=== PATIENT | female | born 1965 | race Caucasian/White ===

== ENCOUNTER 2019-06-16 22:59 | Observation (INO) ==
--- OUTSIDE RECORDS SUMMARY | 2019-06-16 23:03 | External Medical Summary | Continuity of Care Document ---
:1965 Demographics Address [address] [place] [address] Phone Unavailable Preferred Language en Marital Status Unknown Roman Catholic Affiliation Unknown Race White Ethnic Group Unknown Author Name Cally Richards Address Unavailable Unavailable , Care Team Providers Name Role Phone Non[facility] M.Romana Unavailable [email or web address] ERLINDA Richards, A Unavailable Unavailable Problems Active medical history not documented Allergies and Adverse Reactions Allergy history not documented Medications Medications not documented Procedures Procedures not documented Immunizations Immunizations not documented Plan of Treatment Planned Observations Planned Goals not documented Results No Known Results Results not documented
[2019-06-16] MEDS ORDERED: DIAZEPAM 5 MG/ML INJ 10ML VIAL IV STA (23:25)
[2019-06-16] MEDS ORDERED: fentaNYL citrate 100 MCG/2 ML VIAL IV STA (23:25)
[2019-06-16 23:54] LABS: Basophils # (auto) 0.05 K/uL (0-0.2); Basophils % (auto) 0.8 %; Eosinophils # (auto) 0.11 K/uL (0-0.5); Eosinophils % (auto) 1.7 %; Hematocrit (blood only) 43.1 % (37-47); Hemoglobin 14.3 g/dL (12.0-16.0); Immature Granulocytes # (auto) 0.01 K/uL (0.00-0.02); Immature Granulocytes % (auto) 0.2 %; Lymphocytes # (auto) 1.79 K/uL (1.2-3.4); Lymphocytes % (auto) 27.3 %; Mean Corpuscular Hemoglobin 35.1 pg (25-34); Mean Corpuscular Hgb Conc 33.2 g/dL (32-36); Mean Corpuscular Volume 105.9 fL (80-100); Mean Platelet Volume 10.6 fL (7.4-10.4); Monocytes # (auto) 0.78 K/uL (0.11-0.59); Monocytes % (auto) 11.9 %; Neutrophils # (auto) 3.81 K/uL (1.4-6.5); Neutrophils % (auto) 58.1 %; Platelet Count 310 K/uL (130-400); RDW Coefficient of Variation 14.8 % (11.5-14.5); RDW Standard Deviation 57.7 fL (36.4-46.3); Red Blood Count 4.07 M/uL (4.2-5.4); White Blood Count 6.55 K/uL (4.8-10.8)
[2019-06-17 00:10] LABS: Calcium 9.7 mg/dl (8.5-10.1); Est GFR (African American) 112.8; Est GFR (Non-African American) 97.3
[2019-06-17] MEDS ORDERED: KETOROLAC 30 MG/ML VIAL IV STA (00:25)
[2019-06-17] MEDS ORDERED: LORazepam 1 MG/2 ML VIAL IV STA (00:25)
[2019-06-17] MEDS ORDERED: DEXAMETHASONE **PF** INJ 10 MG/ML VIAL IV ONE (00:25)
[2019-06-17] MEDS ORDERED: HYDROmorphone INJ 1 MG/ML SYRINGE IV STA (01:05)
[2019-06-17] MEDS ORDERED: HYDROmorphone INJ 0.5 MG/0.5 ML SYR IV STA (02:29)
--- NOTE | 2019-06-17 04:56 | Emergency Department Note ---
Entered by Michael Stevens acting as a scribe for ED Provider Note Name: Lety Hernandez Age: 54 Arrives Via: EMS Informant: Patient CC: Back pain HPI: The patient is a 54 year old female who presents to the emergency department with complaints of constant lower back pain beginning today. The patient states that she developed lower back pain today when she stood up. She notes that she did not do any heavy lifting or twisting. She reports that her p ain worsens with movement. She denies any leg pain, urinary/bowel incontinence, urinary burning, fever, and SOB. The patient states that she has not had any prior back problems. She notes that she has a history of asthma, anxiety, depression, borderline diabetes, and she reports that she has an artificial hip. She reports that she smokes cigarettes. The patient states that her parents have both had back surgery. ROS: See above HPI for pertinent positives & negatives. A total of 8 systems reviewed and were otherwise negative. Past Medical History: Anxiety, depression, asthma, borderline diabetes Past Surgical History: History of hip replacement Family History: Family history of back problems Social History: Smokes cigarettes Home Medications: None Allergies: Sulfa Physical: Vitals: BP 178/94, Pulse 72, Resp 18, Temp 98.8 F, O2 Sat 94 Exam: GENERAL: Patient is uncomfortable appearing and in moderate distress. EYES: No scleral icterus, unremarkable pupils. RESPIRATORY: No dyspnea. Clear to auscultation and equal bilaterally. No wheeze, no rhonchi. CARDIOVASCULAR: Regular rate and rhythm. No murmurs, rubs, gallops appreciated. GASTROINTESTINAL: Abdomen soft, non-tender, no peritonitis. Bowel sounds positive. No masses appreciated. BACK: No midline tenderness, no CVA tenderness. Vague tenderness to the bilateral lumbar paraspinal muscles. EXTREMITIES: Normal motion all extremities, no cyanosis, no edema. NEUROLOGIC: Alert and oriented, no acute motor or sensory deficits, no focal weakness, cranial nerves grossly intact. SKIN: No rash, no jaundice, no diaphoresis. ED Course: Prior Medical Record, Triage/Nursing Notes, Medications, Allergies reviewed by Me 2319: The patient was evaluated in room B6. A complete history and physical exam was performed. 2350: I rechecked the patient. She is much more comfortable. Her back is still spasming some but she is much improved. 0025: I reevaluated and updated the patient. Her pain is starting to return. I discussed her X-ray with her. Further medication was ordered. 0105: I rechecked the patient. Her pain is better, but she is unable to move due to severe pain with any movement. Her pain is also worse when she lifts her legs. She continues to deny any abdominal pain or radiation of pain. 0335: I reevaluated and updated the patient. She is still not able to sit up without pain despite being somnolent enough to require nasal cannula oxygen[facility]. 0338: Upon reevaluation, the patient is stable. I discussed the findings and the treatment plan with the patient. She expresses agreement and understanding. I spoke with Dr. Hobson of the [facility] Hospitalist Service. The patient will be evaluated for further management. Vital Signs: reviewed and remarkable for HTN Labs: Reviewed and remarkable for wnl Interventions: saline lock, fentanyl 50mcg IV, Valium 5mg IV, toradol 30mg IV, decadron 10mg IV, ativan 1mg IV, dilaudid 1mg IV & 0.5mg IV Imaging: LUMBAR SPINE X-RAY: Xray Results per my interpretation: 3 view: posteriorlisthesis L3/L4 with mild scoliosis and arthritic findings. No fracture nor dislocation. Consults: 0338: I reviewed the patient's case [facility] He will evaluate the patient for further management. Blood pressure: Elevated - Further management by hospitalist. Disposition: Hospitalization Prescriptions: None. Differential: Musculoskeletal, Disc Herniation, Fracture, Cord Compression, Discitis, Infectious, Aortic Pathology, Renal Colic, UTI/Pyelonephritis, Acute Exacerbation of Chronic Pain, Sciatica, Cauda Equina, amongst other pathologies entertained. Medical Decision Makin yr old female with history of asthma, gerd, depression and allergies arrives with acute low back pain. Clearly worse with movement and palpation. No abdominal nor other symptoms. She has good distal pulses and normal neuro exam without loss bowel/bladder control. No indication for emergent MRI nor CT at this time. Findings and symptoms not consistent with renal colic, aaa/dissection/rupture, neuro compromise, infection, hemorrhage amongst others. After extended time in ED and despite given her enough meds that she became mildly hypoxic, patient continues to be quite uncomfortable and even with both me and nurse at bedside is unable to sit up without severe pain. At this time hospitalist consulted for further management do to intractable pain and unable to be discharged. Impression: Intractable back pain Matt Finch MD The scribe's documentation has been prepared under my direction and personally reviewed by me in its entirety. I confirm that the note above accurately reflects all work, treatment, procedures, and medical decision making performed by me. Impression & Plan Intractable back pain Past Med/Surg History Medical History (Updated 06/17/19 @ 04:02 by Michael Stevens) Anxiety Asthma Borderline diabetes Depression Surgical History (Updated 06/16/19 @ 23:23 by Michael Stevens) History of hip replacement Family History (Updated 06/16/19 @ 23:24 by Michael Stevens) Other No significant family history Social History (Updated 06/16/19 @ 23:24 by Michael Stevens) current occupational status: unemployed Feels Safe at Home: Yes Smoking Status: Current every day smoker Results & Data Vital Signs Vital Signs - 24 hr 06/16/19 22:54 06/16/19 23:08 06/16/19 23:10 Temperature 37.1 C Temperature Source Oral Pulse Rate 72 70 69 Pulse Rate from SpO2 Sensor 71 69 Respiratory Rate 18 19 14 Respiratory Effort / Characteristics Non-Labored Spontaneous Respiratory Depth Normal Blood Pressure 178/94 H 178/94 H Blood Pressure Mean 122 119 Blood Pressure Position Sitting Pulse Oximetry 94 97 95 Oxygen Delivery Method Room Air Oxygen Flow Rate Sepsis Recent Fever Within 48 Hours No Sepsis New/Unexplained Change in Mental Status No Sepsis Action Taken by Nursing No Action Required 06/16/19 23:30 06/17/19 00:06 06/17/19 00:30 Temperature Temperature Source Pulse Rate 70 63 68 Pulse Rate from SpO2 Sensor 71 Respiratory Rate 19 15 19 Respiratory Effort / Characteristics Respiratory Depth Blood Pressure Blood Pressure Mean Blood Pressure Position Pulse Oximetry 96 Oxygen Delivery Method Oxygen Flow Rate Sepsis Recent Fever Within 48 Hours Sepsis New/Unexplained Change in Mental Status Sepsis Action Taken by Nursing 06/17/19 01:00 06/17/19 01:14 06/17/19 01:30 Temperature Temperature Source Pulse Rate 67 69 64 Pulse Rate from SpO2 Sensor 68 66 64 Respiratory Rate 20 16 16 Respiratory Effort / Characteristics Respiratory Depth Blood Pressure 147/84 H 120/76 Blood Pressure Mean 91 87 Blood Pressure Position Pulse Oximetry 94 97 92 Oxygen Delivery Method Oxygen Flow Rate Sepsis Recent Fever Within 48 Hours Sepsis New/Unexplained Change in Mental Status Sepsis Action Taken by Nursing 06/17/19 01:31 06/17/19 02:00 06/17/19 02:01 Temperature Temperature Source Pulse Rate 67 63 60 Pulse Rate from SpO2 Sensor 67 61 60 Respiratory Rate 19 18 17 Respiratory Effort / Characteristics Respiratory Depth Blood Pressure 125/86 Blood Pressure Mean 107 Blood Pressure Position Pulse Oximetry 92 93 90 Oxygen Delivery Method Oxygen Flow Rate Sepsis Recent Fever Within 48 Hours Sepsis New/Unexplained Change in Mental Status Sepsis Action Taken by Nursing 06/17/19 02:30 06/17/19 02:31 06/17/19 02:51 Temperature Temperature Source Pulse Rate 60 62 54 L Pulse Rate from SpO2 Sensor 60 61 55 L Respiratory Rate 15 17 13 Respiratory Effort / Characteristics Respiratory Depth Blood Pressure 159/88 H 152/85 H Blood Pressure Mean 111 94 Blood Pressure Position Pulse Oximetry 92 90 95 Oxygen Delivery Method Oxygen Flow Rate Sepsis Recent Fever Within 48 Hours Sepsis New/Unexplained Change in Mental Status Sepsis Action Taken by Nursing 06/17/19 02:54 06/17/19 03:00 06/17/19 03:01 Temperature Temperature Source Pulse Rate 60 58 L 55 L Pulse Rate from SpO2 Sensor 56 L 56 L Respiratory Rate 16 15 14 Respiratory Effort / Characteristics Respiratory Depth Blood Pressure 152/85 H 123/83 Blood Pressure Mean 107 96 Blood Pressure Position Pulse Oximetry 96 96 94 Oxygen Delivery Method Nasal Cannula Oxygen Flow Rate 2 Sepsis Recent Fever Within 48 Hours Sepsis New/Unexplained Change in Mental Status Sepsis Action Taken by Nursing 06/17/19 03:30 06/17/19 04:00 Temperature Temperature Source Pulse Rate 73 56 L Pulse Rate from SpO2 Sensor Respiratory Rate 15 14 Respiratory Effort / Characteristics Respiratory Depth Blood Pressure 177/87 H Blood Pressure Mean 118 Blood Pressure Position Pulse Oximetry Oxygen Delivery Method Oxygen Flow Rate Sepsis Recent Fever Within 48 Hours Sepsis New/Unexplained Change in Mental Status Sepsis Action Taken by Detention Medications Current Medication List: was personally reviewed by me Laboratory Data Attestation: I reviewed the patient's lab results. Result diagrams: 06/16/19 23:35 06/16/19 23:35 Lab Results 06/16/19 06/16/19 Range/Units 23:35 23:35 WBC 6.55 (4.8-10.8) K/uL RBC 4.07 L (4.2-5.4) M/uL Hgb 14.3 (12.0-16.0) g/dL Hct 43.1 (37-47) % MCV 105.9 H (80-100) fL MCH 35.1 H (25-34) pg MCHC 33.2 (32-36) g/dL RDW Std Deviation 57.7 H (36.4-46.3) fL RDW Coeff of Yadira 14.8 H (11.5-14.5) % Plt Count 310 (130-400) K/uL MPV 10.6 H (7.4-10.4) fL Immature Gran % (Auto) 0.2 % Neut % (Auto) 58.1 % Lymph % (Auto) 27.3 % [place] % (Auto) 11.9 % Eos % (Auto) 1.7 % Baso % (Auto) 0.8 % Immature Gran # (Auto) 0.01 (0.00-0.02) K/uL Neut # (Auto) 3.81 (1.4-6.5) K/uL Lymph # (Auto) 1.79 (1.2-3.4) K/uL [place] # (Auto) 0.78 H (0.11-0.59) K/uL Eos # (Auto) 0.11 (0-0.5) K/uL Baso # (Auto) 0.05 (0-0.2) K/uL Sodium 141 (136-145) mmol/L Potassium 4.0 (3.5-5.1) mmol/L Chloride 110 H (98-107) mmol/L Carbon Dioxide 23 (21-32) mmol/L Anion Gap 8.0 (3-11) BUN 5 L (7-18) mg/dl Creatinine 0.69 (0.6-1.2) mg/dl Est Cr Clr Drug Dosing 94.0 ml/min Est GFR ( Amer) 112.8 Est GFR (Non-Af Amer) 97.3 BUN/Creatinine Ratio 7.0 L (10-20) Glucose 118 H (70-99) mg/dl Calcium 9.7 (8.5-10.1) mg/dl Administered Medications Discontinued Medications Dexamethasone Sodium Phosphate (Decadron Pf) 10 mg IV NOW ONE Stop: 06/17/19 00:26 Last Admin: 06/17/19 00:35 Dose: 10 mg Documented by: [id number] Diazepam (Valium) 5 mg IV NOW STA Stop: 06/16/19 23:26 Last Admin: 06/16/19 23:37 Dose: 5 mg Documented by: [id number] Fentanyl Citrate (Fentanyl Citrate) 50 mcg IV NOW STA Stop: 06/16/19 23:26 Last Admin: 06/16/19 23:38 Dose: 50 mcg Documented by: [id number] Hydromorphone HCl (Dilaudid) 1 mg IV NOW STA Stop: 06/17/19 01:06 Last Admin: 06/17/19 01:13 Dose: 1 mg Documented by: [id number] Hydromorphone HCl (Dilaudid) 0.5 mg IV NOW STA Stop: 06/17/19 02:30 Last Admin: 06/17/19 02:38 Dose: 0.5 mg Documented by: [id number] Lorazepam (Ativan) 1 mg in 2 mls @ 2 mls/min IV NOW STA Stop: 06/17/19 00:26 Last Admin: 06/17/19 00:35 Dose: 1 mls/min Documented by: [id number] Ketorolac Tromethamine (Toradol) 30 mg IV NOW STA Stop: 06/17/19 00:26 Last Admin: 06/17/19 00:35 Dose: 30 mg Documented by: [id number] Discharge Plan Visit Data Chief Complaint: Back Injury/Pain Stated Complaint: BACK PAIN ED Provider: Matt Finch Discharge Problem: Intractable back pain Patient Disposition: Admitted As Inpatient The bartolome's documentation has been prepared under my direction and personally reviewed by me in its entirety. I confirm that the note above accurately reflects all work, treatment, procedures, and medical decision making performed by me.
[2019-06-17] MEDS ORDERED: HYDROmorphone INJ 0.5 MG/0.5 ML SYR IV PRN ×2 (04:57→11:30)
[2019-06-17] MEDS ORDERED: ONDANSETRON INJ 2 MG/ML 2 ML VIAL IV PRN (04:57)
[2019-06-17] MEDS ORDERED: SODIUM CHLORIDE 0.9% 1000ML 1,000 ML IV SCH (04:57)
[2019-06-17] MEDS ORDERED: POLYETHYLENE (MIRALAX) 17 GM PACK PO PRN (04:57)
[2019-06-17] MEDS ORDERED: ALPRAZolam 0.25 MG TABLET PO PRN (04:57)
[2019-06-17] MEDS ORDERED: ALBUTEROL HFA 8 GM INHALER INH PRN (04:57)
[2019-06-17] MEDS ORDERED: ACETAMINOPHEN 325 MG TAB PO PRN (04:57)
--- NOTE | 2019-06-17 05:53 | History and Physical Report ---
DATE OF ADMISSION: 06/17/2019 CHIEF COMPLAINT: Severe intractable back pain. HISTORY OF PRESENT ILLNESS: This is a 54-year-old female with past medical history significant for hyperlipidemia, prediabetes, allergic rhinitis, mild persistent asthma, COPD, hypertension, depression with anxiety, panic disorder, history of tobacco abuse, presents with severe back pain. She lives alone because her roommate is in the hospital. She was cooking soup in the afternoon when suddenly had severe back pain, intractable. She never had this kind of pain. She came to the ER and she was in the ER several hours. She was given Toradol, couple doses of Dilaudid, fentanyl, Valium, Decadron and Ativan. Still she has significant pain, any movement is causing severe pain, but denies any weakness in the extremities. Straight leg raise test negative, but she could not turn around because of pain.. Her vitals are stable, afebrile. Labs are okay. The patient denies any other problems. No incontinence of urine or stools. Normal bowel and bladder movements. No blood in stools or black stools. No hematuria or burning micturition. Otherwise, appetite is okay. No abdominal pain, no nausea, no vomiting. No chest pain, no shortness of breath, no cough. No fever, no chills, no headache. No dizziness, no blurred vision. No earache. She always has some runny nose, no sore throat. ALLERGIES: SULFA ANTIBIOTICS. PAST MEDICAL HISTORY: As mentioned above. PAST SURGICAL HISTORY: Ligation of the oviducts, right total hip replacement. MEDICATIONS: The patient is on albuterol 2 puffs inhalation q.i.d. p.r.n., alprazolam 0.25 mg p.o. daily p.r.n., atorvastatin 20 mg p.o. q.p.m., Symbicort 2 puffs inhalation b.i.d., cetirizine 10 mg p.o. daily, Cymbalta 90 mg p.o. daily, lisinopril 10 mg p.o. daily, montelukast 10 mg p.o. daily, omeprazole 20 mg p.o. daily. FAMILY HISTORY: Significant for father has allergies, diabetes, hypertension, hemochromatosis, hypercholesterolemia. Mother has hypercholesterolemia, hypertension, asthma, allergies. SOCIAL HISTORY: , lives with a roommate. Smoked half pack a day for 37 years. Alcohol, 1 drink 2-3 times a week. No drug use. REVIEW OF SYMPTOMS: As per HPI. Rest of review of symptoms negative. PHYSICAL EXAMINATION: GENERAL: The patient is obese, not in acute distress. VITAL SIGNS: Temperature 37.1, pulse 60, respiratory rate 16, blood pressure 152/85, oxygen 96% on 2 liters. HEENT: No pallor, no icterus. Pupils equal, round, reactive to light. NECK: No JVD, no neck masses, no carotid bruit. CARDIOVASCULAR: S1, S2 heard. Regular rate and rhythm. No murmur, no gallop. RESPIRATORY SYSTEM: Normal AP diameter. No accessory muscle use. No wheezing, no crackles. ABDOMEN: Soft, bowel sounds present, nontender. No distention. CENTRAL NERVOUS SYSTEM: Cranial nerves II-XII grossly intact, nonfocal. EXTREMITIES: No edema, no erythema. MUSCULOSKELETAL: Bilateral straight leg raise test is negative. LABORATORY DATA: WBC 6.5, hemoglobin 14.3, hematocrit 43.1, platelets 310. Sodium 141, potassium 4, chloride 110, bicarb 23, BUN 5, creatinine 0.6, serum glucose 118, calcium 9.7. Lumbar spine x-ray, no acute fracture seen. ASSESSMENT AND PLAN: This is a 54-year-old female who presents with severe intractable back pain, received several medications in the ER, still has significant pain, any movement is causing pain, with ambulatory dysfunction because of pain. We will observe in medical floor. Pain control with IV Dilaudid p.r.n., IV fluids and will consult pain management for further recommendations. PT and OT when stable. 1. History of mild persistent asthma, COPD, tobacco abuse. Continue home inhalers, currently stable. 2. Hyperlipidemia. Continue statin. 3. Depression and anxiety. Continue Cymbalta and alprazolam p.r.n. 4. Hypertension. Continue lisinopril. 5. GERD. Omeprazole. 6. Prediabetes. We will follow HbA1c levels. 7. Deep venous thrombosis prophylaxis. SCDs for now. DISPOSITION: Monitor in the medical floor. PT and OT prior to discharge. Expect to discharge home and follow with family doctor. Level 1 full code. MTDD
--- NOTE | 2019-06-17 06:44 | XRay Report ---
XR lumbar spine 2-3V CLINICAL HISTORY: sudden low back pain, worse with movement COMPARISON STUDY: No previous studies for comparison. FINDINGS: Minimal leftward curvature of the lumbar spine is noted. There is no fracture or suspicious lesion by radiography. Disc spaces are preserved. There is mild multilevel endplate osteophytosis. T here is mild multilevel facet arthrosis. The bowel gas pattern is normal. IMPRESSION: 1. No acute lumbar spine fracture or subluxation. 2. Mild multilevel degenerative disc disease and facet arthrosis within the lumbar spine. ACT 112: Negative or not required by law. Electronically signed by: Marv Pulido M.D. 06/17/2019 6:42 AM
[2019-06-17] MEDS: PANTOprazole 40 MG TAB PO SCH (08:27)
[2019-06-17] MEDS: lisinopriL 10 MG TAB PO SCH (08:28)
[2019-06-17] MEDS: MONTELUKAST SODIUM 10 MG TABLET PO SCH (08:28)
[2019-06-17] MEDS: DULOXETINE HCL 30 MG CAP PO SCH (08:28)
[2019-06-17] MEDS: DULOXETINE HCL 60 MG CAP PO SCH (08:29)
[2019-06-17] MEDS ORDERED: methylPREDNISolone 4 MG TAB, 6 DAY TAPER PO SCH (08:30)
[2019-06-17] MEDS: FLUTICASONE/VILANTEROL 100/25MCG 14 PUFFS/INHALER INH SCH (08:31)
[2019-06-17 08:53] LABS: Appearance Urine Turbid (Clear); Blood Urine Negative (Negative); Color Urine Orange; Epithelial Cell Urine Auto >30 /lpf (0-5); Glucose Urine UA Negative (Negative); Ketones Urine Negative (Negative); Leukocyte Esterase Urine Trace (Negative); Nitrite Urine Positive (Negative); Protein Urine Negative (Negative); Specific Gravity Urine 1.026 (1.000-1.030); Urobilinogen Urine Negative (Negative)
[2019-06-17] MEDS ORDERED: CETIRIZINE HCL 10 MG TABLET PO SCH (09:00)
[2019-06-17] MEDS: GABAPENTIN 100 MG CAP PO SCH ×2 (09:10→20:03)
[2019-06-17] MEDS: DICLOFENAC SODIUM 75 MG TABCR PO SCH ×2 (09:10→20:03)
[2019-06-17] MEDS: methylPREDNISolone 4 MG TAB PO SCH ×4 (09:14→20:04)
[2019-06-17 09:20] LABS: Bilirubin Urine Negative (Negative); Ictotest Urine Negative (Negative)
[2019-06-17 09:29] LABS: Amorphous Sediment Urine Present (None Prsent); Bacteria Urine Automated 1+ (Negative); RBC Urine Automated 0-4 /hpf (0-4)
--- NOTE | 2019-06-17 10:06 | Pain Management Consultation ---
Date of Consultation June 17, 2019 Assessment & Plan (1) Intractable back pain: 1. Recommend MRI of the lumbar spine without contrast to further delineate etiology of low back pain. Orders are written 2. Recommend utilization of diclofenac 75 mg p.o. twice daily, gabapentin 100 mg p.o. twice daily, Medrol Dosepak to minimize pain. Orders are written 3. Recommend decreasing hydromorphone to 0.5 mg IV every 6 hours. 4. Continue duloxetine at 90 mg p.o. daily as previous. 5. We will follow-up back with the patient once MRIs been complete to discuss results and delineate treatment plan. 6. Thank you for this consult. (2) Panic disorder: (3) Depression with anxiety: (4) Borderline diabetes: History of Present Illness Attending Physician: Babak Franks MD History of Present Illness 54-year-old female with 100% axial low back pain with acute onset while making a bowl of tomato soup for herself yesterday. She denies lifting a heavy pot or other trauma as to the etiology the pain. She states that pain is over her lower lumbar region and a " bandlike fashion" over left equal to right. She denies any distal radiation of pain or pain over SI joints or greater trochanters. She denies any motor weakness but admits that movement is difficult secondary to pain. She denies any back pain prior to making a bowl of tomato soup. She did not try any interventions other than nonsteroidal anti- inflammatories at home prior to presentation to the emergency room. Pain is characterized as sharp and stabbing between 2-10 out of 10 currently 5 out of 10. She is not had any previous interventional pain management. She denies any bowel or bladder incontinence, motor weakness, footdrop, fever, chills, and or night sweats. Pain Assessment Full Body Front + Back: 1. Allergies Allergy/AdvReac Type Severity Reaction Status Date / Time Sulfa (Sulfonamide Allergy Unknown Unknown Unverified 06/17/19 00:56 Antibiotics) Home Medications Home Medications Medication Instructions Recorded Confirmed Type albuterol sulfate 2 puff INHALATION QID PRN 06/17/19 06/17/19 History alprazolam 0.25 mg PO DAILY PRN 06/17/19 06/17/19 History atorvastatin 20 mg PO QPM 06/17/19 06/17/19 History budesonide-formoterol [Symbicort] 2 puff INHALATION BID 06/17/19 06/17/19 History cetirizine 10 mg PO DAILY 06/17/19 06/17/19 History duloxetine 30 mg PO DAILY 06/17/19 06/17/19 History duloxetine 60 mg PO DAILY 06/17/19 06/17/19 History lisinopril 10 mg PO DAILY 06/17/19 06/17/19 History montelukast 10 mg PO DAILY 06/17/19 06/17/19 History omeprazole 20 mg PO DAILY 06/17/19 06/17/19 History Patient History Medical History Allergic rhinitis (Chronic) Anxiety Asthma (Chronic) Borderline diabetes (Chronic) COPD (chronic obstructive pulmonary disease) (Chronic) Depression Depression with anxiety (Chronic) Hyperlipidemia (Chronic) Hypertension (Chronic) Panic disorder (Chronic) Surgical History History of bilateral tubal ligation History of hip replacement Family History Other No significant family history Social History Preferred Language: Tuvaluan 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 Beliefs That Will Affect Care: None Current Living Situation: Other Current Living Situation Comment: with friend current occupational status: unemployed Other Information That Helps Us Care for You: No Feels Safe at Home: Yes Safety Concerns: Feels Safe At This Time Smoking Status: Current every day smoker Tobacco Type: cigarettes ; Cigarettes Per Day: 10 ; Do You Dip or Chew Tobacco: No ; Second Hand Exposure: No ; Tobacco Cessation Education Requested by Patient: No Hx Alcohol Use: Yes Alcohol type: hard liquor Hx Substance Use: No Physical Exam Physical Exam: Constitutional: Well-developed, well-nourished, healthy- appearing, normal weight Psych: Awake, alert, and oriented 3 with normal affect and mood. Recent memory appears grossly intact Eyes: Pupils are equally round and reactive to light with normal size pupils, eyelids appear normal Ear, nose, mouth, and throat: Moist nasal and oral membranes, lips and tongues appear normal, no external ear abnormalities are noted Neck: The trachea is midline without deviation and no thyromegaly is noted Respiratory: Normal respiratory effort without distress, no audible wheezes or rhonchi CV: Normal S1 and S2 Chest: Deferred GI/abdomen: Non-tender without guarding, soft Musculoskeletal: Head is normocephalic and atraumatic, gait is not observed patient is able to logroll in bed with minimal difficulty Cervical: Lordotic curve: Normal Range of motion is normal with extension, flexion, side-bending, rotation Strength: Strength is grossly equal bilaterally with 5 out of 5 strength in all planes Sensation of upper extremities: Intact bilaterally Lumbar: Lordotic curve: Normal Range of motion is normal with extension, flexion, side-bending, rotation Tenderness: Mildly tender over the axial midline from L4-S1 Facet provocation: Positive bilaterally over lower lumbar facets Straight leg raise: Negative bilaterally Step-off injuries: None Strength: Strength is equal bilaterally with 5 out of 5 strength in all planes Sensation of lower extremities: Intact bilaterally Deep tendon reflexes: Rated at 1+ in bilateral L4 and S1 Myofascial spasm: No appreciable spasm. No discrete trigger points noted Greater trochanters: Nontender bilaterally Sacroiliac joints: Nontender bilaterally Pathologic reflexes noted: None Skin: No rashes, lesions, ulcers, or induration noted Neuro: No nystagmus noted, the tongue is midline, the patient is able to rotate their head bilaterally : Deferred Results Laboratory Review Laboratory results: personally reviewed by me and no pertinent findings Diagnostic Review MRI: no results to review Radiology: reports reviewed and findings discussed with patient Radiology Findings: X-ray of the lumbar spine dated 06/16/2019 reveals 1. No acute lumbar spine fracture or subluxation. 2. Mild multilevel degenerative disc disease and facet arthrosis within the lumbar spine. Previous Records Review Previous Records: personally reviewed by me Opioid Risk Assessment Opioid Risk Assessment: risk assessment performed and minimal risk identified
[2019-06-17] MEDS ORDERED: LORazepam 0.25 MG/0.5 ML VIAL IV PRN (10:28)
[2019-06-17] MEDS ORDERED: ALUMINUM/MAGNESIUM SUSP 30 ML UDC PO PRN (11:08)
--- NOTE | 2019-06-17 12:00 | Hospitalist Progress Note ---
Date of Service June 17, 2019 Assessment & Plan (1) Intractable back pain: -as per admission H and P "This is a 54-year-old female with past medical history significant for hyperlipidemia, prediabetes, allergic rhinitis, mild persistent asthma, COPD, hypertension, depression with anxiety, panic disorder, history of tobacco abuse, presents with severe back pain. She lives alone because her roommate is in the hospital. She was cooking soup in the afternoon when suddenly had severe back pain, intractable. She never had this kind of pain. She came to the ER and she was in the ER several hours. She was given Toradol, couple doses of Dilaudid, fentanyl, Valium, Decadron and Ativan. Still she has significant pain, any movement is causing severe pain, but denies any weakness in the extremities. Straight leg raise test negative, but she could not turn around because of pain -as per pain management consult 06/17/2019 "1. Recommend MRI of the lumbar spine without contrast to further delineate etiology of low back pain. Orders are written 2. Recommend utilization of diclofenac 75 mg p.o. twice daily, gabapentin 100 mg p.o. twice daily, Medrol Dosepak to minimize pain. Orders are written 3. Recommend decreasing hydromorphone to 0.5 mg IV every 6 hours. 4. Continue duloxetine at 90 mg p.o. daily as previous. 5. We will follow-up back with the patient once MRIs been complete to discuss results and delineate treatment plan." -medication changes made by pain management -following pain management recommendations -on day time hospitalist exam: Patient slow on exam on sitting up. No tenderness to palpation of back or spine. reports that pain has been band like distribution going across lower back and hip. Patient had pain medications by pain management. On IV fluids and plans today to have back MRI on 06/17/2019. Patient reports she is ambulating and that ambulation actually improves the pain at rest. she said she was able to walk from hospital bed to bathroom. denies balance problems with ambulation. denies abdominal pain. denies problems with bowel movements. denies dsyuria. reports able to empty bladder completely. denies fevers at home. no dizziness. no lightheadedness -awaiting MRI -PT/OT/case management evaluations Hypertension -Continue lisinopril -monitor renal function Depression and anxiety -on Continue Cymbalta and alprazolam p.r.n. History of mild persistent asthma, COPD, tobacco abuse -Continue home inhalers, currently no respiratory exacerbation Hyperlipidemia -Continue statin. Prediabetes -check HbA1c levels. GERD - Omeprazole. Admission and Anticipated Discharge Date Admission Date: date arrived to hospital is June 17, 2019, discharge date undetermined Subjective Patient slow on exam on sitting up. No tenderness to palpation of back or spine. reports that pain has been band like distribution going across lower back and hip. Patient had pain medications by pain management. On IV fluids and plans today to have back MRI on 06/17/2019. Patient reports she is ambulating and that ambulation actually improves the pain at rest. she said she was able to walk from hospital bed to bathroom. denies balance problems with ambulation. denies abdominal pain. denies problems with bowel movements. denies dsyuria. reports able to empty bladder completely. denies fevers at home. no dizziness. no lightheadedness Review of Systems Review of Systems: All systems reviewed & are unremarkable except as noted in HPI & below Physical Exam Constitutional: WD/WN, vitals as above Eyes: PERRL, conjunctivae normal, anicteric sclerae EOM intact bilaterally ENMT: external ear and nose normal, oropharynx normal Neck: trachea midline, no thyromegaly normal visual inspection Respiratory: normal respiratory effort, lungs clear to auscultation Cardiovascular: RRR, no murmur, no edema Gastrointestinal (Abdomen): normal bowel sounds, soft, nontender, no hepatosplenomegaly Musculoskeletal: Head/Neck/Chest: normocephalic and head atraumatic Neurologic: PERRL, EOMI, accommodation nl, no face palsy, no dysarthria CN's II-XI intact bilaterally Psychiatric: A+Ox3, euthymic affect Results & Data ([facility]) Vital Signs (Past 12 Hours) Vital Signs Temp Pulse Pulse Resp BP BP Pulse Ox 06/17/19 08:00 36.7 C 73 19 139/80 93 06/17/19 04:50 90 18 132/88 95 06/17/19 04:45 36.7 C 64 16 152/94 H 90 06/17/19 04:00 56 L 14 06/17/19 03:30 73 15 177/87 H 06/17/19 03:01 55 L 14 94 06/17/19 03:00 58 L 15 123/83 96 06/17/19 02:54 60 16 152/85 H 96 06/17/19 02:51 54 L 13 152/85 H 95 06/17/19 02:31 62 17 159/88 H 90 06/17/19 02:30 60 15 92 06/17/19 02:01 60 17 90 06/17/19 02:00 63 18 125/86 93 06/17/19 01:31 67 19 92 06/17/19 01:30 64 16 120/76 92 06/17/19 01:14 69 16 147/84 H 97 06/17/19 01:00 67 20 94 06/17/19 00:30 68 19 06/17/19 00:06 63 15
--- NOTE | 2019-06-17 14:21 | Magnetic Resonance Report ---
MR lumbar spine wo con CLINICAL HISTORY: intractable LBP TECHNIQUE: Sagittal and axial T1, T2 and STIR images were obtained. COMPARISON STUDY: X-ray study dated June 16, 2019 OBSERVATIONS: The vertebral bodies and posterior elements appear intact. There is no abnormal bony signal present t o suggest a marrow replacement process. L1-2: No disc protrusions or extrusions. No evidence of spinal canal or neural foraminal compromise. L2-3: There is a minor circumferential disc bulge. There is no significant spinal or foraminal stenos is L3-4: There is a mild circumferential disc bulge. There is no significant spinal or foraminal stenosi s L4-5: There is a mild circumferential disc bulge. There is minimal triangular spinal canal narrowing. There is no significant foraminal stenosis L5-S1: There is an annular fissure and tiny broad-based central disc protrusion. There is no signific ant spinal or foraminal stenosis. The conus medullaris and cauda equina appear normal. IMPRESSION: 1. Mild multilevel spondylytic change 2. Mild L4-5 disc bulge with minimal triangular spinal canal narrowing 3. Annular fissure at the L5-S1 with a tiny associated broad-based central disc protrusion. No signif icant spinal or foraminal stenosis ACT 112: Negative or not required by law. Electronically signed by: Travis James M.D. 06/17/2019 2:20 PM
[2019-06-17] MEDS ORDERED: ATORVASTATIN 20 MG TAB PO SCH (21:00)
[2019-06-18 05:34] LABS: Basophils # (auto) 0.01 K/uL (0-0.2); Basophils % (auto) 0.1 %; Hematocrit (blood only) 39.5 % (37-47); Hemoglobin 13.5 g/dL (12.0-16.0); Immature Granulocytes # (auto) 0.02 K/uL (0.00-0.02); Immature Granulocytes % (auto) 0.2 %; Lymphocytes % (auto) 12.3 %; Mean Corpuscular Hemoglobin 35.5 pg (25-34); Mean Corpuscular Hgb Conc 34.2 g/dL (32-36); Mean Corpuscular Volume 103.9 fL (80-100); Mean Platelet Volume 10.2 fL (7.4-10.4); Monocytes # (auto) 0.56 K/uL (0.11-0.59); Monocytes % (auto) 5.7 %; Neutrophils # (auto) 7.96 K/uL (1.4-6.5); Neutrophils % (auto) 81.7 %; Platelet Count 339 K/uL (130-400); RDW Coefficient of Variation 14.5 % (11.5-14.5); RDW Standard Deviation 55.3 fL (36.4-46.3); White Blood Count 9.75 K/uL (4.8-10.8)
[2019-06-18 05:53] LABS: Estimated Average Glucose 108 mg/dl; Hemoglobin A1C 5.4 % (4.5-5.6)
[2019-06-18 06:06] LABS: Calcium 9.1 mg/dl (8.5-10.1); Creatinine Clr Calc Pharmacy 95.5 ml/min; Est GFR (African American) 113.9; Est GFR (Non-African American) 98.3; Magnesium 1.7 mg/dl (1.8-2.4); Potassium 4.5 mmol/L (3.5-5.1)
[2019-06-18] MEDS: methylPREDNISolone 4 MG TAB PO SCH ×2 (06:18→12:58)
[2019-06-18] MEDS: PANTOprazole 40 MG TAB PO SCH (08:08)
[2019-06-18] MEDS: FLUTICASONE/VILANTEROL 100/25MCG 14 PUFFS/INHALER INH SCH (08:08)
[2019-06-18] MEDS: MONTELUKAST SODIUM 10 MG TABLET PO SCH (08:09)
[2019-06-18] MEDS: DULOXETINE HCL 60 MG CAP PO SCH (08:10)
[2019-06-18] MEDS: DICLOFENAC SODIUM 75 MG TABCR PO SCH (08:10)
[2019-06-18] MEDS: GABAPENTIN 100 MG CAP PO SCH (08:10)
[2019-06-18] MEDS: lisinopriL 10 MG TAB PO SCH (08:11)
[2019-06-18] MEDS: DULOXETINE HCL 30 MG CAP PO SCH (08:11)
[2019-06-18] MEDS ORDERED: MAGNESIUM OXIDE 400 MG TAB PO SCH (09:00)
[2019-06-18] MEDS ORDERED: CETIRIZINE HCL 10 MG TABLET PO SCH (09:00)
--- NOTE | 2019-06-18 09:32 | Pain Management Progress Note ---
Date of Service June 18, 2019 Assessment & Plan (1) Lumbago: 1. MRI findings were reviewed with the patient which revealed minimal multilevel spondylitic change and mild disc bulging at L4-5 and L5 and S1 without evidence of any significant central canal or neural foraminal stenosis. We discussed likely etiology of myofascial etiology with the patient. Patient is reporting significant reduction in pain with initiation of conservative therapy current with Medrol Dosepak, NSAIDs and gabapentin therapy. Will recommend she maintain with these medications at this time. 2. Patient was encouraged participate in PT upon discharge 3. Her potential candidacy for interventional treatment will be determined with persisting complaints in the outpatient setting. Patient may follow-up in the outpatient pain clinic as needed. Will sign off on patient at this time. Present on Admission?: Yes Subjective Mrs. Hoover is a 54-year-old white female who was admitted due to intractable axial low back pain without a radicular component without known injury. Patient was initiated on methylprednisolone Dosepak, gabapentin 100 mg twice daily and diclofenac 75 mg twice daily per Dr. Ford. MRI of the lumbar spine was ordered and completed. Patient is indicating that her pain is significantly improved during today's visit. She reports some moderate discomfort in the axial spine with movement. She slept through the night without awakening. She has been out of bed to the bathroom multiple times without any significant exacerbation of pain. She rating her discomfort at a 3-4/10. She continues to deny a radicular or radiating pain in the lower extremities, weaknesses, footdrop or episodes of falling. She has no bowel or bladder incontinence. The patient has no further constitutional complaints. Plan of care discussed with Dr. Taylor. Pain Assessment Pain Assessment Full Body Front + Back: 1. 100% axial lumbar pain Pain scale - at its best (0-10): 3 Pain scale - at its worst (0-10): 6 Physical Exam Physical Exam: General: Patient sleeping upon entering the room in no acute distress. Patient was awakened and arousable. Speech and thought process appropriate. Mood and affect appropriate. Cognition intact. Back/spine: Patient was able to logroll without obvious discomfort. Minimal tenderness palpation which is non-focal over the midline of the lumbosacral region. Neurologic: Cranial nerves grossly intact. Ambulatory function not witnessed. Results Diagnostic Review MRI: non enhanced and reports reviewed MRI Findings: [facility], [place] [phone] Magnetic Resonance Report Patient: HORTENSIA HOOVER Date: 06/17/19 MR#: [id number]: [address] Acct ID:[id number]: Date: [address] Zip: [place] [address] Age: 54Location: 4W Sex: F Room/Bed: [facility] Att Phy: Babak Franks, MDDiagnosis: BACK PAIN Viri Phy: Sal Traore, MDService Date: 06/17/19 Fam Phy:Interpreting Phy: Travis James MD Admit Phy: Tacho Hobson MD Ordering Phy: Keisha Ford DO cc: ~ MR lumbar spine wo con CLINICAL HISTORY: intractable LBP TECHNIQUE: Sagittal and axial T1, T2 and STIR images were obtained. COMPARISON STUDY: X-ray study dated June 16, 2019 OBSERVATIONS: The vertebral bodies and posterior elements appear intact. There is no abnormal bony signal present to suggest a marrow replacement process. L1-2: No disc protrusions or extrusions. No evidence of spinal canal or neural foraminal compromise. L2-3: There is a minor circumferential disc bulge. There is no significant spinal or foraminal stenosis L3-4: There is a mild circumferential disc bulge. There is no significant spinal or foraminal stenosis L4-5: There is a mild circumferential disc bulge. There is minimal triangular spinal canal narrowing. There is no significant foraminal stenosis L5-S1: There is an annular fissure and tiny broad-based central disc protrusion. There is no significant spinal or foraminal stenosis. The conus medullaris and cauda equina appear normal. IMPRESSION: 1. Mild multilevel spondylytic change 2. Mild L4-5 disc bulge with minimal triangular spinal canal narrowing 3. Annular fissure at the L5-S1 with a tiny associated broad-based central disc protrusion. No significant spinal or foraminal stenosis ACT 112: Negative or not required by law. Electronically signed by: Travis James M.D. 06/17/2019 2:20 PM Dictated: 06/17/19 1416 Transcribed: 06/17/19 1416
--- NOTE | 2019-06-18 13:21 | Hospitalist Progress Note ---
Date of Service June 18, 2019 Assessment & Plan (1) Intractable back pain: -as per pain management consult 06/17/2019-Dr. Keisha Ford "1. Recommend MRI of the lumbar spine without contrast to further delineate etiology of low back pain. Orders are written 2. Recommend utilization of diclofenac 75 mg p.o. twice daily, gabapentin 100 mg p.o. twice daily, Medrol Dosepak to minimize pain. Orders are written 3. Recommend decreasing hydromorphone to 0.5 mg IV every 6 hours. 4. Continue duloxetine at 90 mg p.o. daily as previous. 5. We will follow-up back with the patient once MRIs been complete to discuss results and delineate treatment plan." -Lumbar spine MRI: 1. Mild multilevel spondylytic change 2. Mild L4-5 disc bulge with minimal triangular spinal canal narrowing 3. Annular fissure at the L5-S1 with a tiny associated broad-based central disc protrusion. No significant spinal or foraminal stenosis -Pain much better after regimen of diclofenac, gabapentin, Medrol Dosepak started Patient ambulating with very minimal pain States that she is ready for discharge Discharge plan: Gabapentin 100 mg twice a day x1 week Diclofenac 75 mg p.o. daily x1 week with food Finish the Medrol Dosepak as directed Follow-up with primary care physician within 1 week Follow-up with [facility] Dr. Ashley Ford as needed Patient advised not to do any heavy exertion, lifting but to ambulate at home as much as possible Hypertension -Stable -Continue lisinopril Depression and anxiety -Stable -Continue Cymbalta and alprazolam p.r.n. History of mild persistent asthma, COPD, tobacco abuse -Stable Hyperlipidemia -Continue statin. Prediabetes -Hemoglobin A1c 5.4 GERD - Omeprazole. Disposition Discharge to home Follow-up with primary care physician as outlined in discharge instruction Follow-up with [facility] as needed Admission and Anticipated Discharge Date Admission Date: June 17, 2019 Subjective Follow-up for low back pain secondary to mild disc bulge Seen resting in bed, comfortable, watching TV, in good spirits States back pain is much better, pain is mild Ambulating the hallways in the room with no problems Denies chest pain, shortness of breath, palpitations, dizziness next Denies other symptoms States that she is ready and would like to be discharged today Review of Systems Review of Systems: All systems reviewed & are unremarkable except as noted in HPI & below Physical Exam Physical Exam: General- oriented x 3, not in distress, speaks in sentences with no effort or accessory muscle use Head- atraumatic Eyes- PERRL, EOMI, anicteric ENT- oropharynx clear Neck- supple, no JVD, no adenopathy, no thyromegaly; carotids +2/2, no bruits appreciated Lungs- clear to auscultation bilaterally, no rales/wheezes Heart- normal rate, regular rhythm; no murmur, no gallop, no rub appreciated Abdomen- normal bowel sounds, nondistended, soft, nontender, no masses or hepatosplenomegaly Extremities- no pretibial edema, no calf tenderness; peripheral pulses intact Back-no edema, erythema, warmth, tenderness Neuro- alert, oriented x 3; CN 2-12 grossly intact; motor 5/5 bilaterally;sensat ion 100% on all extremities; no other gross focal neurologic deficits Skin- warm & dry [facility] & [facility] ([facility]) Vital Signs (Past 12 Hours) Vital Signs Temp Pulse Resp BP Pulse Ox 06/18/19 07:42 36.7 C 49 L 19 138/77 96
--- NOTE | 2019-06-18 13:54 | Discharge Summary ---
Date of Service June 18, 2019 Admission HPI Per Admitting Provider CHIEF COMPLAINT: Severe intractable back pain. HISTORY OF PRESENT ILLNESS: This is a 54-year-old female with past medical history significant for hyperlipidemia, prediabetes, allergic rhinitis, mild persistent asthma, COPD, hypertension, depression with anxiety, panic disorder, history of tobacco abuse, presents with severe back pain. She lives alone because her roommate is in the hospital. She was cooking soup in the afternoon when suddenly had severe back pain, intractable. She never had this kind of pain. She came to the ER and she was in the ER several hours. She was given Toradol, couple doses of Dilaudid, fentanyl, Valium, Decadron and Ativan. Still she has significant pain, any movement is causing severe pain, but denies any weakness in the extremities. Straight leg raise test negative, but she could not turn around because of pain.. Her vitals are stable, afebrile. Labs are okay. The patient denies any other problems. No incontinence of urine or stools. Normal bowel and bladder movements. No blood in stools or black stools. No hematuria or burning micturition. Otherwise, appetite is okay. No abdominal pain, no nausea, no vomiting. No chest pain, no shortness of breath, no cough. No fever, no chills, no headache. No dizziness, no blurred vision. No earache. She always has some runny nose, no sore throat. Admission Exam Per Admitting Provider PHYSICAL EXAMINATION: GENERAL: The patient is obese, not in acute distress. VITAL SIGNS: Temperature 37.1, pulse 60, respiratory rate 16, blood pressure 152/85, oxygen 96% on 2 liters. HEENT: No pallor, no icterus. Pupils equal, round, reactive to light. NECK: No JVD, no neck masses, no carotid bruit. CARDIOVASCULAR: S1, S2 heard. Regular rate and rhythm. No murmur, no gallop. RESPIRATORY SYSTEM: Normal AP diameter. No accessory muscle use. No wheezing, no crackles. ABDOMEN: Soft, bowel sounds present, nontender. No distention. CENTRAL NERVOUS SYSTEM: Cranial nerves II-XII grossly intact, nonfocal. EXTREMITIES: No edema, no erythema. MUSCULOSKELETAL: Bilateral straight leg raise test is negative. Principal Diagnosis Low Back Pain Secondary to Mild Disc Bulge, L4-L5, L5-S1 Levels Discharge Exam General- oriented x 3, not in distress, speaks in sentences with no effort or accessory muscle use Head- atraumatic Eyes- PERRL, EOMI, anicteric ENT- oropharynx clear Neck- supple, no JVD, no adenopathy, no thyromegaly; carotids +2/2, no bruits appreciated Lungs- clear to auscultation bilaterally, no rales/wheezes Heart- normal rate, regular rhythm; no murmur, no gallop, no rub appreciated Abdomen- normal bowel sounds, nondistended, soft, nontender, no masses or hepatosplenomegaly Extremities- no pretibial edema, no calf tenderness; peripheral pulses intact Back-no edema, erythema, warmth, tenderness Neuro- alert, oriented x 3; CN 2-12 grossly intact; motor 5/5 bilaterally;sensation 100% on all extremities; no other gross focal neurologic deficits Skin- warm & dry Discharge Data Allergies Allergy/AdvReac Type Severity Reaction Status Date / Time Sulfa (Sulfonamide Allergy Unknown Unknown Unverified 06/17/19 00:56 Antibiotics) Consultations 06/17/19 03:36 ED Decision to Admit Stat 06/17/19 04:57 Consult Case Management - Discharge Planning Routine 06/17/19 08:00 Consult Pain Management Routine Ordered Studies 06/17/19 08:26 MR lumbar spine wo con Routine CLINICAL HISTORY: intractable LBP TECHNIQUE: Sagittal and axial T1, T2 and STIR images were obtained. COMPARISON STUDY: X-ray study dated June 16, 2019 OBSERVATIONS: The vertebral bodies and posterior elements appear intact. There is no abnormal bony signal present to suggest a marrow replacement process. L1-2: No disc protrusions or extrusions. No evidence of spinal canal or neural foraminal compromise. L2-3: There is a minor circumferential disc bulge. There is no significant spinal or foraminal stenosis L3-4: There is a mild circumferential disc bulge. There is no significant spinal or foraminal stenosis L4-5: There is a mild circumferential disc bulge. There is minimal triangular spinal canal narrowing. There is no significant foraminal stenosis L5-S1: There is an annular fissure and tiny broad-based central disc protrusion. There is no significant spinal or foraminal stenosis. The conus medullaris and cauda equina appear normal. IMPRESSION: 1. Mild multilevel spondylytic change 2. Mild L4-5 disc bulge with minimal triangular spinal canal narrowing 3. Annular fissure at the L5-S1 with a tiny associated broad-based central disc protrusion. No significant spinal or foraminal stenosis Hospital Course (1) Intractable back pain: -as per pain management consult 06/17/2019-Dr. Keisha Ford "1. Recommend MRI of the lumbar spine without contrast to further delineate etiology of low back pain. Orders are written 2. Recommend utilization of diclofenac 75 mg p.o. twice daily, gabapentin 100 mg p.o. twice daily, Medrol Dosepak to minimize pain. Orders are written 3. Recommend decreasing hydromorphone to 0.5 mg IV every 6 hours. 4. Continue duloxetine at 90 mg p.o. daily as previous. -Lumbar spine MRI: 1. Mild multilevel spondylytic change 2. Mild L4-5 disc bulge with minimal triangular spinal canal narrowing 3. Annular fissure at the L5-S1 with a tiny associated broad-based central disc protrusion. No significant spinal or foraminal stenosis -Pain much better after regimen of diclofenac, gabapentin, Medrol Dosepak started Patient ambulating with very minimal pain PT recommends d/c home, OT recommends home health [facility] with OT Patient States that she is ready for discharge Discharge plan: Gabapentin 100 mg twice a day x1 week Diclofenac 75 mg p.o. daily x1 week with food Finish the Medrol Dosepak as directed Follow-up with primary care physician within 1 week Follow-up with [facility] Dr. Ashley Ford as needed Patient advised not to do any heavy exertion, lifting but to ambulate at home as much as possible Hypertension -Stable -Continue lisinopril Depression and anxiety -Stable -Continue Cymbalta and alprazolam p.r.n. History of mild persistent asthma, COPD, tobacco abuse -Stable Hyperlipidemia -Continue statin. Prediabetes -Hemoglobin A1c 5.4 GERD - Omeprazole. Disposition Discharge to home Follow-up with primary care physician as outlined in discharge instruction Follow-up with [facility] as needed Total Time Total Time Spent Total Time Spent (In Minutes): 50 minutes Discharge Plan Discharge Items Patient Disposition: Home - Home Health Services Reason For Visit: BACK PAIN Discharge Diagnosis: LOW BACK PAIN SECONDARY TO MILD DISC BULGE L4-L5, L5-S1 LEVELS Activity: As commented below Activity Comment: Activity gradually as tolerated, no heavy exertion, continue home occupational therapy Lifting: Wait until after follow-up appointment Exercise/Sports: Wait until after follow-up appointment Driving/Machine Use: No driving until reevaluated by primary care physician Non-emergency contact: Primary Care Provider Call non-emergency contact if: you have any medication questions, your symptoms worsen, your pain is not controlled, your pain is worsening, your pain is unusual for you, your pain is concerning for you and you have a fever Follow-up/Referrals: Keisha Ford, [Physician] - (Per Pain Management, your primary care provider will need to refer and have you set up to see Pain Management. ) Sal Traore MD [Primary Care Provider] - 06/24/19 2:55 pm (Please call [phone] or [phone] to reschedule.) Diet: Carb Consistent or DM2 and Heart Healthy Addtl Attending Provider Instructions: Continue home health services with occupational therapy. Please follow-up with your primary care physician as noted below: 06/24/2019 3:10 PM Provider Sal Traore MD [facility] You may follow-up with the [facility] care of Dr. Keisha Ford as needed. Please review your new medication list and follow instructions carefully. Your new medications for pain control include: Gabapentin 100 mg twice a day x1 week Diclofenac 75 mg twice a day with a full stomach x1 week Methylprednisolone to be taken as follows, also with full stomach- June 18, 2019: 4 mg at 6 PM, 8 mg at bedtime June 19, 2019: 4 mg at 7 AM, 4 mg at 1 PM, 4 mg at 6 PM and 4 mg at 9 PM June 20, 2019: 4 mg at 7 AM, 4 mg at 1 PM, 4 mg at 9 PM June 21, 2019: 4 mg at 7 AM and 4 mg at 9 PM June 22, 2019: 4 mg at 7 AM Then stop Call primary care physician or return to the ER immediately if with worsening of symptoms, leg weakness or numbness, incontinence, fever or chills. Drink plenty of fluids. Addtl Pewter Caster Provider Instructions: MRI lumbar spine The vertebral bodies and posterior elements appear intact. There is no abnormal bony signal present to suggest a marrow replacement process. L1-2: No disc protrusions or extrusions. No evidence of spinal canal or neural foraminal compromise. L2-3: There is a minor circumferential disc bulge. There is no significant spinal or foraminal stenosis L3-4: There is a mild circumferential disc bulge. There is no significant spinal or foraminal stenosis L4-5: There is a mild circumferential disc bulge. There is minimal triangular spinal canal narrowing. There is no significant foraminal stenosis L5-S1: There is an annular fissure and tiny broad-based central disc protrusion. There is no significant spinal or foraminal stenosis. The conus medullaris and cauda equina appear normal. IMPRESSION: 1. Mild multilevel spondylytic change 2. Mild L4-5 disc bulge with minimal triangular spinal canal narrowing 3. Annular fissure at the L5-S1 with a tiny associated broad-based central disc protrusion. No significant spinal or foraminal stenosis Pending Studies at Discharge: No Stand-Alone Forms: Spinal Restoration, Smoking Cessation Medications and DC Order Prescriptions: New diclofenac sodium 75 mg Tablet,Delayed Release (Dr/Ec) 75 mg PO BID 7 Days Qty: 14 RF: 0 gabapentin 100 mg Capsule 100 mg PO BID 7 Days Qty: 14 RF: 1 methylprednisolone 4 mg Tablet 4 mg PO UD 5 Days Qty: 13 RF: 0 magnesium oxide 400 mg (241.3 mg magnesium) Tablet 400 mg PO BID 3 Days Qty: 6 RF: 0 Continued montelukast 10 mg tablet 10 mg PO DAILY RF: 0 Symbicort 160-4.5 mcg/actuation HFA aerosol inhaler 2 puff INHALATION BID RF: 0 atorvastatin 20 mg tablet 20 mg PO QPM RF: 0 cetirizine 10 mg tablet 10 mg PO DAILY RF: 0 alprazolam 0.25 mg tablet 0.25 mg PO DAILY PRN (Reason: Anxiety) RF: 0 lisinopril 10 mg tablet 10 mg PO DAILY RF: 0 albuterol sulfate 90 mcg/actuation HFA aerosol inhaler 2 puff INHALATION QID PRN (Reason: Shortness Of Breath Or Wheezing) RF: 0 duloxetine 30 mg capsule,delayed release(DR/EC) 30 mg PO DAILY RF: 0 duloxetine 60 mg capsule,delayed release(DR/EC) 60 mg PO DAILY RF: 0 omeprazole 20 mg capsule,delayed release(DR/EC) 20 mg PO DAILY RF: 0 Discharge Orders: Discharge Order (Routine); Ordered 06/18/19 Ordered By: Arvin Lozano Admission Data Admit Date/Time: 06/17/19 04:08 Attending Provider: Arvin Lozano Admit Provider: Tacho Hobson Primary Care Provider: Sal Traore Other Providers: Tacho Hobson ; Austin Fontana ; Babak Franks
[2019-06-18] MEDS ORDERED: methylPREDNISolone 4 MG TAB PO SCH (21:00)
[2019-06-19] MEDS ORDERED: methylPREDNISolone 4 MG TAB PO SCH (07:00)
[2019-06-20] MEDS ORDERED: methylPREDNISolone 4 MG TAB PO SCH (07:00)
[2019-06-21] MEDS ORDERED: methylPREDNISolone 4 MG TAB PO SCH (07:00)
[2019-06-22] MEDS ORDERED: methylPREDNISolone 4 MG TAB PO SCH (07:00)
== END 2019-06-18 15:18 | disposition home health service (06) ==
LOC: 4W 22:59 → ED 22:59 → SUATTDRO 06-17 04:08 → 4W 06-17 04:50